=== PATIENT | female | born 1985 | race Caucasian/White ===

== ENCOUNTER → 2016-09-12 | Outpatient (CLI) | payer OTHER ==
[~2016-09-12] MED LIST: ABILIFY5 MG PO; ACETAMINOPHEN325 MG PO; AUGMENTIN PO; CELEXA20 MG PO; CIPRO HC OTIC S10 ML OT; CIPRO PO; FEVERALL650 MG/SUP RC; HUMALOG100 U/ML SUBQ; HUMULIN 70100 UNIT/1; LANTUS100 U/ML; LANTUS100 U/ML INJ; LANTUS100 U/ML SUBQ; LEVEMIR100 UNITS/; LIPITOR; LIPITOR PO; LOPID600 MG PO; METOPROLOL TART25 MG PO; NOVOLOG100 U/ML SUBQ; PRENATAL VITAMI1 TA3 PO; RISPERIDONE; RISPERIDONE PO; SYNTHROID PO; SYNTHROID112 MCG PO; VICODIN PO
[2016-09-12 14:02] LABS: URINE APPEARANCE CLEAR; URINE BILIRUBIN NEG (NEG); URINE BLOOD 1+ (NEG); URINE COLOR YELLOW; URINE GLUCOSE >1000 MG/DL (NEG); URINE KETONE NEG (NEG); URINE LEUKOCYTE ESTERASE NEG (NEG); URINE NITRATE NEG (NEG); URINE PROTEIN 3+ (NEG); URINE SPECIFIC GRAVITY 1.023 (1.003-1.035); URINE UROBILINOGEN 0.2 MG/DL (NEG)
[2016-09-12 14:04] LABS: HEMATOCRIT 22.7 % (35.0-45.0); MEAN CELL VOLUME 90.2 FL (83-96); MEAN CORPUSCULAR HEMOGLOBIN 35.9 PG (28-34); MEAN CORPUSCULAR HGB CONC 39.8 g/dL (30-36); MEAN PLATELET VOLUME 11.5 FL (6.5-11.5); RED BLOOD COUNT 2.52 X10e (3.90-5.30); URINE BACTERIA AUWI NEG (NEGATIVE); URINE SQUAMOUS EPITHELIAL CELL OCC /[HPF]; WHITE BLOOD COUNT 6.8 X10e3 (4.0-10.5)
[2016-09-12 15:46] LABS: BUN/CREATININE RATIO 18.75; CALCIUM SERUM 8.9 mg/dL (8.4-10.2); CREATININE SERUM 2.4 mg/dL (0.6-1.4); GLOM FILT RATE Estimated 25.7 mL/min (>60); POTASSIUM 5.1 mmol/L (3.5-5.1)
== END | disposition home or self-care (01) ==
LOC: CLAB 13:12
PROVIDERS: Internal Medicine Nephrology
DX: N18.3 Chronic kidney disease, stage 3 (moderate) (principal)
CPT/HCPCS: 36415; 80048; 81003; 85027

== ENCOUNTER → 2016-11-29 | Outpatient (CLI) | payer OTHER ==
[2016-11-29 12:00] LABS: BASOPHIL# 0.1 X10e3 (0-0.3); EOSINOPHIL# 0.2 X10e3 (0-0.7); EOSINOPHIL% 3.9 % (0.0-7.0); HEMATOCRIT 22.7 % (35.0-45.0); HEMOGLOBIN 7.7 gm/dL (12.0-16.0); LYMPHOCYTE# 1.8 X10e3 (1.0-3.5); LYMPHOCYTE% 34.1 % (17.0-45.0); MEAN CELL VOLUME 91.4 FL (83-96); MEAN CORPUSCULAR HEMOGLOBIN 31.1 PG (28-34); MEAN CORPUSCULAR HGB CONC 34.1 g/dL (30-36); MONOCYTE# 0.6 X10e3 (0-1.0); NEUTROPHIL# 2.5 X10e3 (1.5-7.1); PLATELET COUNT 147 X10e3 (140-420); RED BLOOD COUNT 2.48 X10e (3.90-5.30); RED CELL DISTRIBUTION WIDTH 14.5 % (11.0-15.5); WHITE BLOOD COUNT 5.2 X10e3 (4.0-10.5)
[2016-11-29 12:03] LABS: DIFF IND YES
[2016-11-29 12:06] LABS: URINE APPEARANCE CLOUDY; URINE BILIRUBIN NEG (NEG); URINE BLOOD 1+ (NEG); URINE COLOR YELLOW; URINE GLUCOSE 500 MG/DL (NEG); URINE KETONE NEG (NEG); URINE LEUKOCYTE ESTERASE NEG (NEG); URINE NITRATE NEG (NEG); URINE PH 6.5 (5-8); URINE PROTEIN 3+ (NEG); URINE SPECIFIC GRAVITY 1.022 (1.003-1.035); URINE UROBILINOGEN 0.2 MG/DL (NEG)
[2016-11-29 12:09] LABS: URINE BACTERIA AUWI 2+ (NEGATIVE); URINE SQUAMOUS EPITHELIAL CELL MANY /[HPF]
[2016-11-29 12:28] LABS: BUN/CREATININE RATIO 10.86; CALCIUM SERUM 8.5 mg/dL (8.4-10.2); CREATININE SERUM 2.3 mg/dL (0.6-1.4); PHOSPHOROUS 3.6 mg/dL (2.5-4.6)
[2016-11-29 12:32] LABS: URINE SOURCE CLEAN CATCH
[2016-11-29 12:34] LABS: URINE TRANSITIONAL EPI CELLS FEW /[HPF]
[2016-11-29 12:35] LABS: U HYALINE CASTS AUWI 0-2 /[LPF]; URINE MUCUS PRESENT
[2016-11-29 13:29] LABS: CREATININE,RANDOM URINE 135 mg/dL; TOTAL PROTEIN,RANDOM URINE 1398 mg/dl (<10)
[2016-11-29 14:30] LABS: ANISOCYTOSIS SL; PLATELET ESTIMATE NORMAL (NORMAL)
[2016-11-30 23:40] LABS: CALCIUM (PTHINTACT) 8.5 mg/dL (8.6-10.2)
== END | disposition home or self-care (01) ==
LOC: CLAB 10:30
PROVIDERS: Internal Medicine Nephrology
DX: N18.3 Chronic kidney disease, stage 3 (moderate) (principal)
CPT/HCPCS: 36415; 80048; 81003; 82310; 82570; 83540; 83970; 84100; 84156; 85025